=== PATIENT | male | born 1945 | race Caucasian/White ===

== ENCOUNTER 2016-05-14 19:05 | Emergency (ER) | payer MEDICARE ==
[2014-09-18 02:07] VITALS: BMI 35.3
[~2016-05-14 19:05] MED LIST: ALDACTONE25 MG PO; ASPIRIN81 MG PO; BRILINTA90 MG PO; CARDURA8 MG PO; COLCRYS0.6 MG PO; CRESTOR10 MG PO; K-DUR20 MEQ PO; LASIX40 MG PO; LOPRESSOR25 MG PO; NEURONTIN 300300 MG PO; PLAVIX75 MG PO; PRILOSEC20 MG PO; SYNTHROID50 MCG PO; ZAROXOLYN5 MG PO; ZESTRIL20 MG PO
== END 2016-05-14 21:09 | disposition home or self-care (01) ==
LOC: D.ER 19:05
DX: I10 Essential (primary) hypertension (principal); I25.10 Atherosclerotic heart disease of native coronary artery without angina pectoris; R00.1 Bradycardia, unspecified; I44.0 Atrioventricular block, first degree

== ENCOUNTER 2020-09-21 15:50 | Emergency (ER) | payer OTHER ==
[~2020-09-21] VITALS: Ht 193 cm; Wt 132.7 kg
[2020-09-21 16:06] VITALS: BP 155/73; Ht 193 cm; Wt 132.7 kg
[2020-09-21] MEDS ORDERED: CYCLOBENZAPRINE10 MG PO (17:32)
[2020-09-21] MEDS ORDERED: HYDROCODON-ACE1 EAC7 PO (17:32)
== END 2020-09-21 17:55 | disposition home or self-care (01) ==
LOC: D.ER 15:50
DX: S00.03XA Contusion of scalp, initial encounter (principal); I10 Essential (primary) hypertension; V89.2XXA Person injured in unspecified motor-vehicle accident, traffic, initial encounter; Y93.9 Activity, unspecified; Y92.9 Unspecified place or not applicable